=== PATIENT | female | born 1955 | race Caucasian/White ===

== ENCOUNTER → 2017-01-20 | Outpatient (CLI) | payer BC ==
--- NOTE | 2017-01-21 11:53 | MM ---
Reason for exam: screening (asymptomatic). Last mammogram was performed 1 year and 3 months ago. History: Patient is postmenopausal. Took hormonal contraceptives for 3 years beginning at age 20. Physical Findings: A clinical breast exam by your physician is recommended on an annual basis and results should be correlated with mammographic findings. MG 3D Screening Mammo W/Cad Bilateral CC and MLO view(s) were taken. Prior study comparison: October 08, 2015, bilateral MG 3d screening mammo w/cad. May 08, 2014, bilateral MG screening mammo w CAD. The breast tissue is heterogeneously dense. This may lower the sensitivity of mammography. Finding: There is a 8 mm circumscribed round mass in the lower outer quadrant, posterior position of the right breast. There is a chronic nodularity bilaterally. New finding since October 08, 2015 and May 08, 2014. ASSESSMENT: Incomplete: need additional imaging evaluation, BI-RAD 0 RECOMMENDATION: Ultrasound of the right breast. [facility] will attempt to contact patient to return for ultrasound.
== END | disposition home or self-care (01) ==
LOC: RADMAMWWP 07:20
PROVIDERS: ATTEND Family Medicine
DX: Z12.31 Encounter for screening mammogram for malignant neoplasm of breast (principal)
CPT/HCPCS: 77063; G0202

== ENCOUNTER → 2017-01-25 | Outpatient (CLI) | payer BC ==
--- NOTE | 2017-01-25 08:06 | USB ---
Reason for exam: additional evaluation requested from abnormal screening. History: Patient is postmenopausal. Took hormonal contraceptives for 3 years beginning at age 20. Physical Findings: Nurse did not find any significant physical abnormalities on exam. US Breast Workup RT Right breast ultrasound demonstrates a 0.6 x 0.6 x 0.6cm cystic lesion at 7 o'clock and a 0.4 x 0.4 x 0.2cm oval, mixed lesion at 8 o'clock. These results were verbally communicated with the patient and result sheet given to the patient on 01/25/17. ASSESSMENT: Suspicious, BI-RAD 4 RECOMMENDATION: Ultrasound core biopsy of the right breast. (7 o'clock) Pending apppointment for surgical consultation.
== END | disposition home or self-care (01) ==
LOC: RADUSWWP 06:53
PROVIDERS: ATTEND Family Medicine
DX: R92.8 Other abnormal and inconclusive findings on diagnostic imaging of breast (principal)

== ENCOUNTER → 2017-02-16 | Day surgery (SDC) | payer BC ==
[~2017-02-16] MED LIST: LIDOCAINE 1% INJ 10MG/ML (20 ML MDV) ONE; SODIUM BICARB 4% 5 ML VIAL (0.48 MEQ/ML) ONE
--- NOTE | 2017-02-16 14:44 | USB ---
EXAMINATION TYPE: US breast aspiration single RT DATE OF EXAM: 02/16/2017 1:03 PM COMPARISON: NONE CLINICAL HISTORY: R92.8 Abn Mammogram. Technique: Real-time linear array sonography is performed over the right breast with attention to the previous abnormality. Findings: There is a hypoechoic area which is taller than wide measuring 0.7 x 0.6 x 0.7 cm. This has smooth blake and appears anechoic. Some minimal posterior wall enhancement is evident without good through transmission. PROCEDURE: The procedure was explained to the patient, the risks, complications and benefits. All questions were answered. Written and verbal informed consent was obtained. A timeout was performed. The patient was prepped and draped in the usual manner. The area was anesthetized. Utilizing an 18-gauge needle the cyst was easily aspirated. Clip was placed at the aspiration site. Samples labeled and transferred to pathology for additional evaluation. Results will be provided by the patient's referring physician to the patient. Postprocedure mammogram ordered by the physician was performed. Clip is in normal location. IMPRESSION: 1. Successful ultrasound-guided cyst aspiration Recommendations: 1. Recommendations are pending pathology results. Pathology Results: Benign RIGHT BREAST, ASPIRATE: AGGREGATES OF BLAND APOCRINE CELLS, MACROPHAGES AND DEGENERATED CELLULAR MATERIAL CONSISTENT WITH BENIGN APOCRINE CYST/CYST CONTENTS. Recommendation Follow up ultrasound of the right breast in 6 months. (In particular to assess the 8 o'clock mixed lesion). MTDD
--- NOTE | 2017-02-16 16:10 | MM ---
Post procedure mammogram for clip placement INDICATION: Cyst aspiration Physician ordered imaging is performed in the craniocaudal and mediolateral views over the right [address]. Images are obtained post cyst aspiration. A core marker is within the expected region of the 6:00 position right breast. Previous density appea rs absent correlating with cyst aspiration performed under ultrasound guidance. IMPRESSIONS: 1. Satisfactory clip placement following cyst aspiration.
== END ==
LOC: RADUSWWP 11:35
PROVIDERS: ATTEND Surgery
DX: N60.01 Solitary cyst of right breast (principal); R92.8 Other abnormal and inconclusive findings on diagnostic imaging of breast
CPT/HCPCS: 88108; 76942; 19000; G0206; A4648; J2001

== ENCOUNTER → 2017-08-24 | Outpatient (CLI) | payer BC ==
--- NOTE | 2017-08-24 10:40 | USB ---
Reason for exam: follow-up at short interval from prior study. History: Patient is postmenopausal. Benign US breast aspiration single RT of the right breast, February 16, 2017. Took hormonal contraceptives for 3 years beginning at age 20. Physical Findings: Nurse did not find any significant physical abnormalities on exam. US Breast RT Right breast ultrasound includes all four quadrants, the retroareolar region and axilla. Finding demonstrates a 5 x 4 x 6mm oval, cystic lesion at 2 o'clock. These results were verbally communicated with the patient and result sheet given to the patient on 08/24/17. ASSESSMENT: Benign, BI-RAD 2 RECOMMENDATION: Return to routine screening mammogram schedule for both breasts. Back on schedule.
== END | disposition home or self-care (01) ==
LOC: RADUSWWP 08:12
PROVIDERS: ATTEND Surgery
DX: R92.8 Other abnormal and inconclusive findings on diagnostic imaging of breast (principal)

== ENCOUNTER → 2018-01-21 | Outpatient (CLI) | payer BC ==
--- NOTE | 2018-01-21 14:20 | MM ---
Reason for exam: additional evaluation requested from prior study. Last mammogram was performed 11 months ago. History: Patient is postmenopausal. Family history of breast cancer in sister at age 60. Benign US breast aspiration single RT of the right breast, February 16, 2017. Took hormonal contraceptives for 3 years beginning at age 20. Physical Findings: Nurse did not find any significant physical abnormalities on exam. MG 3D Diag Mammo W/Cad JUDY Bilateral CC and MLO view(s) were taken. Prior study comparison: February 16, 2017, right breast MG diagnostic mammo RT wo CAD. January 20, 2017, bilateral MG 3d screening mammo w/cad. The breast tissue is heterogeneously dense. This may lower the sensitivity of mammography. There are benign appearing multiple bilateral masses waxing and waning over multiple prior exams. No suspicious abnormality. Right biopsy marker. These results were verbally communicated with the patient and result sheet given to the patient on 01/21/18. ASSESSMENT: Benign, BI-RAD 2 RECOMMENDATION: Routine screening mammogram of both breasts in 1 year.
== END | disposition home or self-care (01) ==
LOC: RADMAMWWP 12:48
PROVIDERS: ATTEND Family Medicine
DX: R92.8 Other abnormal and inconclusive findings on diagnostic imaging of breast (principal)
CPT/HCPCS: 77066; G0279

== ENCOUNTER → 2018-01-28 | Outpatient (CLI) | payer BC ==
--- NOTE | 2018-01-28 11:17 | BD ---
EXAMINATION TYPE: MG DEXA axial skeleton. DATE OF EXAM: 01/28/2018 COMPARISON: 09.19.2002 CLINICAL HISTORY: 62 YR OLD FEMALE....ICD-10 CODE: Z78.0 MENOPAUSAL W/O HRT Height: 61.5 Weight: 211 FRAX RISK QUESTIONS: Alcohol (3 or more units per day): NO Family History (Parent hip fracture): NO Glucocorticoids (More than 3mos): NO (Ex: prednisone, prednisolone, methylprednisolone, dexamethasone, and hydrocortisone). History of Fracture in Adulthood: NO Secondary Osteoporosis: NO 1. Type 1 Diabetes: NO 2. Hyperthyroidism: NO 3. Menopause before 45: NO 4. Malnutrition: NO 5. Chronic liver disease: NO Rheumatoid Arthritis: NO Current Tobacco Use: NO RISK FACTORS HISTORY OF: Family History of Osteoporosis: NO Active: SOMEWHAT...SHE WORKS Diet low in dairy products/other sources of calcium: NO Postmenopausal woman: 52 [place] Lost more than 2 inches in height since high school: NO Hyperparathyroidism: NO Adrenal Insufficiency: NO MEDICATIONS: Additional Medications: NONE TO NOTE Additional History: LT KNEE REPLACEMENT EXAM MEASUREMENTS: Bone mineral densitometry was performed using the [employer] System. Bone mineral density as measured about the Lumbar spine is: ----- L1-L4(G/cm2): 1.381 T Score Values are as follows: ----- L1: 1.6 ----- L2: 1.0 ----- L3: 1.9 ----- L4: 1.9 ----- L1-L4: 1.7 Bone mineral density has: Decreased -4.1% since study of: 09.19.2002 Bone mineral density about the R hip (g/cm2): 1.149 Bone mineral density about the L hip (g/cm2): 1.133 T Score values are as follows: -----R Neck: 0.2 -----L Neck: -0.4 -----R Total: 1.1 -----L Total: 1.0 Bone mineral density has: Decreased -10.6% since study of: 09.19.2002 FRAX%S: THERE IS A 6.1% CHANCE OF A MAJOR OSTEOPOROTIC FX AND A 0.2% FOR HIP FX.....PROBABILITY O F FX IN 10 YRS TIME IMPRESSION: No evidence for osteoporosis or osteopenia. NOTE: T-SCORE=SD OF THE YOUNG ADULT MEAN.
== END | disposition home or self-care (01) ==
LOC: RADBDWWP 08:32
PROVIDERS: ATTEND Family Medicine
DX: Z78.0 Asymptomatic menopausal state (principal)
CPT/HCPCS: 77080

== ENCOUNTER → 2018-02-02 | Outpatient (CLI) | payer BC ==
--- NOTE | 2018-02-02 10:51 | ECHOF ---
Referral Reason:R94.31 Abnormal EKG MEASUREMENTS -------- HEIGHT: 154.9 cm WEIGHT: 95.7 kg BP: 164/96 RVIDd: 2.0 cm (< 3.3) IVSd: 0.8 cm (0.6 - 1.1) LVIDd: 4.3 cm (3.9 - 5.3) LVPWd: 1.0 cm (0.6 - 1.1) IVSs: 1.0 cm LVIDs: 3.2 cm LVPWs: 1.1 cm LAESV Index (A-L): 15.98 ml/m Ao Diam: 3.4 cm (2.0 - 3.7) AV Cusp: 1.7 cm (1.5 - 2.6) LA Diam: 2.8 cm (2.7 - 3.8) MV EXCURSION: 15.618 mm (> 18.000) MV EF SLOPE: 67 mm/s (70 - 150) EPSS: 1.2 cm MV E Julio: 0.95 m/s MV DecT: 266 ms MV A Julio: 1.14 m/s MV E/A Ratio: 0.83 RAP: 5.00 mmHg RVSP: 28.70 mmHg FINDINGS -------- Sinus rhythm. This was a technically adequate study. The left ventricular size is normal. Left ventricular wall thickness is normal. Overall left vent ricular systolic function is normal with, an EF between 55 - 60 %. The right ventricle is normal in size and function. Normal LA size by volume 22+/-6 ml/m2. The right atrium is normal in size. Aortic valve is trileaflet and is mildly thickened. Trace amount of aortic regurgitation. There is no evidence of aortic stenosis. Mild mitral annular calcification present. There is trace mitral regurgitation. Trace tricuspid regurgitation present. Right ventricular systolic pressure is normal at < 35 mmHg. There is no evidence of pulmonary hypertension. The pulmonic valve was not well visualized. The aortic root size is normal. Normal inferior vena cava with normal inspiratory collapse consistent with estimated right atrial pre ssure of 5 mmHg. There is no pericardial effusion. CONCLUSIONS -------- 1. Sinus rhythm. 2. This was a technically adequate study. 3. The left ventricular size is normal. 4. Left ventricular wall thickness is normal. 5. Overall left ventricular systolic function is normal with, an EF between 55 - 60 %. 6. Normal LA size by volume 22+/-6 ml/m2. 7. Aortic valve is trileaflet and is mildly thickened. 8. Trace amount of aortic regurgitation. 9. Mild mitral annular calcification present. 10. There is trace mitral regurgitation. 11. Trace tricuspid regurgitation present. 12. Right ventricular systolic pressure is normal at < 35 mmHg. 13. There is no evidence of pulmonary hypertension. 14. The pulmonic valve was not well visualized. 15. The aortic root size is normal. 16. There is no pericardial effusion. FACTORY LABORER: Tenzin Sutton RDCS
== END | disposition home or self-care (01) ==
LOC: RADECHMAIN 08:23
PROVIDERS: ATTEND Family Medicine
DX: I08.3 Combined rheumatic disorders of mitral, aortic and tricuspid valves (principal)
CPT/HCPCS: 93306

== ENCOUNTER → 2018-04-07 | Outpatient (CLI) | payer BC ==
--- NOTE | 2018-04-07 09:00 | CT ---
EXAMINATION TYPE: CT abdomen pelvis w con DATE OF EXAM: 04/07/2018 COMPARISON: NONE HISTORY: Abd pain CT DLP: 2053.5 mGycm CONTRAST: CT scan of the abdomen and pelvis is performed with Oral Contrast and with IV Contrast, patient injec yvonne with 100 mL of Isovue 300. FINDINGS: LUNG BASES-: No visible nodule. No infiltrate. LIVER/GB: Cholecystectomy clips are in place. Fatty hepatic infiltration noted. No space occupying hepatic lesion. Biliary tree is of normal caliber. PANCREAS: No inflammation. No distinct mass. SPLEEN: No splenic enlargement. No lesion seen. ADRENALS: No nodule. No thickening. KIDNEYS/BLADDER: No hydronephrosis. No nephrolithiasis. No distinct renal mass. Urinary bladder g rossly unremarkable. BOWEL: Normal appendix. Normal bowel caliber. No inflammation. GENITAL ORGANS: No gross abnormality. LYMPH NODES: No greater than 1cm abdominal or pelvic lymph nodes are appreciated. AORTA: No significant abnormality. OSSEOUS STRUCTURES: No significant abnormality is seen. OTHER: No significant additional abnormality is seen. IMPRESSION: 1. No significant abnormality to account for the patient's symptoms.
== END | disposition home or self-care (01) ==
LOC: RADCTMAIN 06:42
PROVIDERS: ATTEND Family Medicine
DX: R10.9 Unspecified abdominal pain (principal)
CPT/HCPCS: 74177; Q9967

== ENCOUNTER → 2019-02-20 | Outpatient (CLI) | payer OTHER ==
--- NOTE | 2019-02-20 10:46 | US ---
EXAMINATION TYPE: US pelvic complete DATE OF EXAM: 02/20/2019 COMPARISON: CT 2018 CLINICAL HISTORY: R19.00 Intraabdominal and Pelvic Swelling. Left pelvic swelling x 1 year, 3 , para 3 TECHNIQUE: . Transabdominal sonographic images of the pelvis were acquired. Date of LMP: 15 years ago EXAM MEASUREMENTS: Uterus: 8.5 x 3.9 x 4.3 cm Endometrial Stripe: 0.6 cm Right Ovary: 2.2 x 1.3 x 2.0 cm Left Ovary: 1.9 x 1.4 x 1.4 cm 1. Uterus: anteverted, mildly heterogeneous 2. Endometrium: wnl 3. Right Ovary: wnl 4. Left Ovary: wnl 5. Bilateral Adnexa: wnl 6. Posterior cul-de-sac: wnl IMPRESSION: No significant abnormalities evident.
== END | disposition home or self-care (01) ==
LOC: RADUSWWP 08:03
PROVIDERS: ATTEND Family Medicine
DX: R19.00 Intra-abdominal and pelvic swelling, mass and lump, unspecified site (principal)
CPT/HCPCS: 76856

== ENCOUNTER → 2019-03-01 | Outpatient (CLI) | payer OTHER ==
--- NOTE | 2019-03-01 14:08 | MM ---
Reason for exam: screening (asymptomatic). Last mammogram was performed 1 year and 1 month ago. History: Patient is postmenopausal. Family history of breast cancer in sister at age 60. Benign US breast aspiration single RT of the right breast, February 16, 2017. Took hormonal contraceptives for 3 years beginning at age 20. Physical Findings: A clinical breast exam by your physician is recommended on an annual basis and results should be correlated with mammographic findings. MG 3D Screening Mammo W/Cad Bilateral CC and MLO view(s) were taken. Prior study comparison: January 21, 2018, bilateral MG 3d diag mammo w/cad JUDY. February 16, 2017, right breast MG diagnostic mammo RT wo CAD. The breast tissue is heterogeneously dense. This may lower the sensitivity of mammography. Previous mammotome biopsy in the right breast. There is chronic nodularity bilaterally. Asymmetric breast tissue in the right subareolar breast, stable. There is no discrete abnormality. ASSESSMENT: Benign, BI-RAD 2 RECOMMENDATION: Routine screening mammogram of both breasts in 1 year.
== END ==
LOC: RADMAMWWP 07:56
PROVIDERS: ATTEND Family Medicine
DX: Z12.31 Encounter for screening mammogram for malignant neoplasm of breast (principal)
CPT/HCPCS: 77063; 77067